=== PATIENT | female | born 1980 ===

== ENCOUNTER 2017-08-17 10:29 | Emergency (ER) | payer OTHER ==
[~2017-08-17] VITALS: Ht 167.6 cm; Wt 68.0 kg
[2017-08-17] MEDS ORDERED: NORFLEX100MG PO (13:50)
[2017-08-17] MEDS ORDERED: KETO10TA2 PO (13:50)
[2017-08-17] MEDS ORDERED: MEDROLPACK PO (13:50)
== END 2017-08-17 14:30 | disposition home or self-care (01) ==
LOC: ER 10:29
DX: M54.5 Low back pain (principal)